=== PATIENT | female | born 1965 | race Caucasian/White ===

== ENCOUNTER 2018-10-16 09:50 | Inpatient (IN) | payer OTHER ==
[2018-10-16 10:36] VITALS: BMI 37.0
[2018-10-16] MEDS ORDERED: MAGNESIUM CITRATE 300 ML BOTTLE PO PRN (14:26)
[2018-10-16] MEDS ORDERED: MENTHOL/PHENOL 1 EACH UD MM PRN (14:26)
[2018-10-16] MEDS ORDERED: LOPERAMIDE HCL 2 MG CAPSULE PO PRN (14:26)
[2018-10-16] MEDS ORDERED: guaiFENesin/D-METHORPHAN HB 10 ML UNIT-DOSE CUPS PO PRN (14:26)
[2018-10-16] MEDS ORDERED: MAG HYDROX/AL HYDROX/SIMETH 30 ML UNIT-DOSE CUP PO PRN (14:26)
--- NOTE | 2018-10-16 14:26 | HP ---
CIWA Score - Admission Criteria [facility]ASAS Guidelines: Admission for Medically Managed Detox: Requires at least one of the followin. CIWA greater than 12 2. Seizures within the past 24 hours 3. Delirium tremens within the past 24 hours 4. Hallucinations within the past 24 hours 5. Acute intervention needed for co occurring medical disorder 6. Acute intervention needed for co occurring psychiatric disorder 7. Severe withdrawal that cannot be handled at a lower level of care (continued vomiting, continued diarrhea, abnormal vital signs) requiring intravenous medication and/or fluids 8. Admission ROS S - HPI Allergies/Adverse Reactions: Allergies Allergy/AdvReac Type Severity Reaction Status Date / Time No Known Allergies Allergy Verified 10/16/18 11:14 Exam Limitations: No Limitations - Ebola screening Have you traveled outside of the country in the last 21 days: No Have you had contact with anyone from an Ebola affected area: No Have you been sick,other than usual withdrawal symptoms: No Do you have a fever: No - Review of Systems Constitutional: Changes in sleep EENT: reports: No Symptoms Reported Respiratory: reports: No Symptoms reported Cardiac: reports: No Symptoms Reported GI: reports: Diarrhea, Poor Fluid Intake : reports: No Symptoms Reported Musculoskeletal: reports: Back Pain, Muscle Pain Integumentary: reports: No Symptoms Reported Neuro: reports: Seizure (drug and alcohol related seizures) Endocrine: reports: No Symptoms Reported Hematology: reports: No Symptoms Reported Psychiatric: reports: Judgement Intact, Mood/Affect Appropiate, Orientated x3, Agitated, Anxious Other Systems: Reviewed and Negative Patient History - Patient Medical History Hx Anemia: No Hx Asthma: Yes Hx Chronic Obstructive Pulmonary Disease (COPD): No Hx Cancer: No Hx Cardiac Disorders: No Hx Congestive Heart Failure: No Hx Hypertension: No Hx Hypercholesterolemia: No Hx Pacemaker: No HX Cerebrovascular Accident: No Hx Seizures: Yes (drug related - last episode was in 03/2018) Hx Dementia: No Hx Diabetes: No Hx Gastrointestinal Disorders: Yes (acid reflux) Hx Genitourinary Disorders: No Hx Sexually Transmitted Disorders: No Hx Renal Disease (ESRD): No Hx Thyroid Disease: No Hx Human Immunodeficiency Virus (HIV): No (NEGATIVE HX) Hx Hepatitis C: Yes (no treatment) Hx Depression: Yes Hx Suicide Attempt: No (10yrs ago ) Hx Bipolar Disorder: No Hx Schizophrenia: No - Patient Surgical History Past Surgical History: No Hx Neurologic Surgery: No Hx Cataract Extraction: No Hx Cardiac Surgery: No Hx Lung Surgery: No Hx Breast Surgery: No Hx Breast Biopsy: No Hx Abdominal Surgery: No Hx Appendectomy: No Hx Cholecystectomy: No Hx Genitourinary Surgery: No Hx Section: No Hx Orthopedic Surgery: No Anesthesia Reaction: No - PPD History Previous Implant?: Yes Documented Results: Positive w/o proof Implanted On Prior [facility] Admission?: No PPD to be Administered?: No - Reproductive History Patient is a Female of Child Bearing Age (11 -55 yrs old): No Patient : No - Smoking Cessation Smoking history: Current every day smoker Have you smoked in the past 12 months: Yes Aproximately how many cigarettes per day: 30 Hx Chewing Tobacco Use: No Initiated information on smoking cessation: Yes 'Breaking Loose' booklet given: 10/16/18 - Substance & Tx. History Hx Alcohol Use: Yes Hx Substance Use: Yes Substance Use Type: Alcohol, Cocaine Hx Substance Use Treatment: Yes ([facility] detox completed 10/16/17) - Substances Abused Cocaine Route: Inhalation Frequency: Daily Amount used: $100 Age of first use: 22 Date of Last Use: 10/10/18 Alcohol-beer Route: Oral Frequency: Daily Amount used: 2-6 pks. Age of first use: 21 Date of Last Use: 10/09/18 Family Disease History - Family Disease History Family Disease History: Diabetes: Father (ALCOHOLISM; DEPRESSION), Other: Father Admission Physical Exam [facility] - Vital Signs Vital Signs: Vital Signs - 24 hr 10/16/18 10:34 Temperature 98.3 F Pulse Rate 69 Respiratory 16 Rate Blood Pressure 141/83 - Physical General Appearance: Yes: Appropriately Dressed, Mild Distress, Obese, Tremorous , Irritable, Anxious HEENTM: Yes: Hearing grossly Normal, Normal Voice Respiratory: Yes: Lungs Clear, Normal Breath Sounds, No Respiratory Distress Neck: Yes: No masses,lesions,Nodules Breast: Yes: Within Normal Limits Cardiology: Yes: Regular Rhythm, Regular Rate, S1, S2 Abdominal: Yes: Normal Bowel Sounds, Non Tender, Soft Genitourinary: Yes: Within Normal Limits Back: Yes: Normal Inspection Musculoskeletal: Yes: Back pain Extremities: Yes: Normal Capillary Refill, Normal Inspection, Non-Tender, Tremors Neurological: Yes: Fully Oriented, Alert, Normal Response Integumentary: Yes: Diaphoresis Lymphatic: Yes: Within Normal Limits - Diagnostic (1) Bipolar II disorder Current Visit: Yes Status: Chronic (2) Cocaine dependence Current Visit: Yes Status: Chronic Qualifiers: Substance use status: uncomplicated Qualified Code(s): F14.20 - Cocaine dependence, uncomplicated (3) Nicotine dependence Current Visit: Yes Status: Chronic Qualifiers: Nicotine product type: cigarettes Substance use status: uncomplicated Qualified Code(s): F17.210 - Nicotine dependence, cigarettes, uncomplicated (4) Depression Current Visit: No Status: Chronic (5) GERD (gastroesophageal reflux disease) Current Visit: Yes Status: Chronic Qualifiers: Esophagitis presence: without esophagitis Qualified Code(s): K21.9 - Gastro -esophageal reflux disease without esophagitis (6) Seizure disorder Current Visit: No Status: Suspected Cleared for Admission [facility] - Detox or Rehab [facility] Level of Care: Medically Managed [facility] Breath Alcohol Content Breath Alcohol Content: 0 Urine Pregancy Test - Result Urine Test Results: Negative- NO Line Present Urine Drug Screen - Results Drug Screen Negative: No Urine Drug Screen Results: BZO-Benzodiazepines, MTD-Methadone Inpatient Rehab Admission - Initial Determination Are CD services needed?: Yes Free of communicable disease: Yes Not in need of hospitalization: Yes - Rehab Admission Criteria Poor recovery environment: Yes Comorbidities: Yes Lacks judgement: Yes
[2018-10-16 17:15] LABS: URINE APPEARANCE CLEAR; URINE BILIRUBIN NEGATIVE (<2.0 mg/dL); URINE COLOR STRAW; URINE GLUCOSE (UA) NEGATIVE (NEGATIVE); URINE KETONE NEGATIVE (NEGATIVE); URINE LEUK ESTERASE TRACE (NEGATIVE); URINE NITRITE NEGATIVE (NEGATIVE); URINE PROTEIN NEGATIVE (NEGATIVE); URINE UROBILINOGEN NEGATIVE mg/dL (0.2-1.0)
[2018-10-16 17:24] LABS: EPI CELLS RARE /HPF (FEW)
[2018-10-16] MEDS: GABAPENTIN 300 MG CAPSULE (FP) PO SCH ×2 (17:28→21:15)
[2018-10-16] MEDS: NICOTINE POLACRILEX 4 MG GUM BC PRN (17:29)
--- NOTE | 2018-10-16 21:11 | PN ---
[facility] Progress Note Note: Psychiatric nurse practitioner note: Call received by RN requesting patient's evening lithium dose. Patient reports taking lithium 150mg TID. Chart and pharmacy claims reviewed. Labs pending. Unable to verify medication through pharmacy claims. [place] WILL NOT be ordered at this time. Will order [place] level for the morning.
[2018-10-16] MEDS: MELATONIN 5 MG TABLETS PO PRN (21:15)
[2018-10-16] MEDS: THIAMINE HCL 100 MG TABLET (FP) PO SCH (21:15)
[2018-10-17] MEDS: GABAPENTIN 300 MG CAPSULE (FP) PO SCH ×3 (06:33→21:23)
[2018-10-17] MEDS ORDERED: METHADONE HCL 10 MG TABLET PO SCH (07:15)
[2018-10-17] MEDS ORDERED: METHADONE HCL 10 MG TABLET ONE (07:48)
[2018-10-17] MEDS: METHADONE 120 MG, METHADONE 10 MG PO SCH (07:49)
[2018-10-17] MEDS ORDERED: METHADONE HCL 40 MG DISPERSABLE TABLET ONE (07:49)
[2018-10-17] MEDS: NICOTINE 21 MG/24 HOURS TOPICAL PATCH TD SCH (09:20)
[2018-10-17] MEDS: VENLAFAXINE HCL 75 MG TABLET PO SCH (09:20)
[2018-10-17] MEDS: PRENATAL VITAMINS W/ FOLIC ACID TABLET (FP) PO SCH (09:21)
[2018-10-17] MEDS: PANTOPRAZOLE 40 MG TABLET (FP) PO SCH (09:21)
[2018-10-17 11:28] LABS: ALBUMIN 3.7 g/dl (3.4-5.0); ALK PHOS 84 U/L (45-117); ANION GAP 4 MMOL/L (8-16); BILIRUBIN,TOTAL 0.3 mg/dL (0.2-1); BLOOD UREA NITROGEN 9 mg/dL (7-18); CALCIUM 8.9 mg/dL (8.5-10.1); CHLORIDE 105 mmol/L (98-107); CO2 32 mmol/L (21-32); CREATININE 0.8 mg/dL (0.55-1.3); GLUCOSE,RANDOM 74 mg/dL (74-106); SGOT/AST 25 U/L (15-37); SGPT/ALT 29 U/L (13-61); SODIUM 140 mmol/L (136-145); TOT PROT 7.5 g/dl (6.4-8.2)
[2018-10-17 11:55] LABS: HEMATOCRIT 37.7 % (32.4-45.2); HEMOGLOBIN 12.3 GM/dL (10.7-15.3); MCH 29.4 pg (25.7-33.7); MCHC 32.6 g/dl (32.0-36.0); MEAN CELL VOLUME 90.1 fl (80-96); MEAN PLT VOLUME 10.3 fl (7.5-11.1); PLATELET COUNT 165 K/MM3 (134-434); RBC 4.19 M/mm3 (3.60-5.2); WHITE BLOOD COUNT 4.3 K/mm3 (4.0-10.0)
--- NOTE | 2018-10-17 12:00 | PN ---
[facility] Progress Note Note: PATIENT ARRIVED TO UNIT YESTERDAY EVENING FOR REHAB SERVICES FOR HEROIN, COCAINE AND ETOH DEPENDENCE. PATIENT CURRENTLY ON MMTP. PMH INCLUDES HEPATITIS C (UNTREATED), ASTHMA, CHRONIC BACK PAIN/DISC HERNIATION, BIPOLAR DISORDER AND SEIZURES. PATIENT C/O BACK SPASMS TODAY BUT OTHERWISE REPORTS "I AM FINE, JUST TIRED". Vital Signs Temperature 98.1 F 10/17/18 07:17 Pulse Rate 62 10/17/18 07:17 Respiratory Rate 18 10/17/18 07:17 Blood Pressure 109/74 10/17/18 07:17 O2 Sat by Pulse Oximetry (%) Laboratory Tests 10/16/18 10/17/18 10/17/18 15:29 05:45 05:45 WBC 4.3 RBC 4.19 Hgb 12.3 Hct 37.7 MCV 90.1 MCH 29.4 MCHC 32.6 RDW 15.0 Plt Count 165 MPV 10.3 Sodium 140 Potassium 4.0 Chloride 105 Carbon Dioxide 32 Anion Gap 4 L BUN 9 Creatinine 0.8 Creat Clearance w eGFR > 60 Random Glucose 74 Calcium 8.9 Total Bilirubin 0.3 AST 25 ALT 29 Alkaline Phosphatase 84 Total Protein 7.5 Albumin 3.7 Urine Color Straw Urine Appearance Clear Urine pH 7.0 Ur Specific [place] 1.009 L Urine Protein Negative Urine Glucose (UA) Negative Urine Ketones Negative Urine Blood Negative Urine Nitrite Negative Urine Bilirubin Negative Urine Urobilinogen Negative Ur Leukocyte Esterase Trace Urine WBC (Auto) <1 Urine RBC (Auto) <1 Ur Epithelial Cells Rare PE: ALERT AND ORIENTED X 3 SKIN WARM AND DRY CAR S1S2 RESP CTA BL GI +OBESE, BS+, NT,ND EXT TRACE PEDAL EDEMA, BLE, +DRY SKIN TO HEELS A/P: MMTP HEROIN/COCAINE/ETOH DEPENDENCE SZD ASTHMA CHRONIC HEP C WILL ADD FLEXERIL FOR BACK SPASMS CONTINUE REHAB SERVICES AND ALL CURRENT ORDERS MAY WEAR SLIPPERS ON UNIT CONTINUE TO MONITOR
[2018-10-17] MEDS: CYCLOBENZAPRINE HCL 10 MG TABLET (FP) PO PRN ×2 (14:01→21:22)
[2018-10-17] MEDS: NICOTINE POLACRILEX 4 MG GUM BC PRN (14:02)
--- NOTE | 2018-10-17 14:46 | HP ---
Psychiatrist Admission - Data Date of interview: 10/17/18 Admission source: [facility] Identifying data: Patient is a 53 year old , mother of three, unemployed , domiciled, and is supported by [facility]. This is patient's first admission to rehab at [facility]. Patient admitted to rehabilitation for alcohol , marijuana, and cocaine dependence. Medical History: Asthma, seizures (drug related-last episode was in 03/2018), Hep C, GERD Psychiatric History: Patient's first psychiatric contact was at 31 years of age after experiencing withdrawal symptoms (anxiety, tremors) from xanax. She reports being prescribed klonopin for approximately seven years. Patient reports h/o twelve psychiatric hospitalizations, most recently two years ago at [facility] after feeling depressed and suicidal. Ms. Cuellar denies h /o psychotic symptoms. Patient is also known to [facility], [facility], and [facility]. Diagnosis of Bipolar II disorder. Outpatient psychiatric care is provided by Dr. Peña at the [facility] clinic in the [place], [place]. States that she is prescribed abilify + Effexor 75mg XL + Gabapentin 300mg TID + Klonopin 1mg BID + [place] 150mg TID (patient unsure of certain dosages, will contact pharmacy). Patient reports h/o three suicide attempts ( overdose and self mutilation). Ms. Cuellar was discharged from community hospital detox on 10/16/18. States she received all of her medications during detox except for klonopin. At present she reports feeling tired but states her mood is stable. Physical/Sexual Abuse/Trauma History: denies. Vital Signs: Vital Signs - 24 hr 10/17/18 10/17/18 10/17/18 00:30 03:30 07:17 Temperature 98.1 F Pulse Rate 62 Respiratory 20 20 18 Rate Blood Pressure 109/74 Allergies/Adverse Reactions: Allergies Allergy/AdvReac Type Severity Reaction Status Date / Time No Known Allergies Allergy Verified 10/16/18 11:14 Date of last physical exam: 10/16/18 Concur with the findings of this exam: Yes - Substance Abuse/Tx History Hx Alcohol Use: Yes (6 pack daily) Hx Substance Use: Yes (Cocaine- $20 daily Marijuana- $10 daily) Substance Use Type: Cocaine Hx [facility] Mental Status Exam - Mental Status Exam Alert and Oriented to: Time, Place, Person Cognitive Function: Good Patient Appearance: Well Groomed Mood: Euthymic Affect: Mood Congruent Patient Behavior: Fatigued, Appropriate, Cooperative Speech Pattern: Appropriate Voice Loudness: Normal Thought Process: Intact, Goal Oriented Thought Disorder: Not Present Hallucinations: Denies Suicidal Ideation: Denies Homicidal Ideation: Denies Insight/Judgement: Poor Sleep: Poorly Appetite: Fair Muscle strength/Tone: Normal Gait/Station: Normal Psychiatric Findings - Problem List ([place] 1, 2,3) (1) Bipolar II disorder Current Visit: Yes Status: Chronic (2) Cocaine dependence Current Visit: Yes Status: Chronic Qualifiers: Substance use status: uncomplicated Qualified Code(s): F14.20 - Cocaine dependence, uncomplicated (3) Methadone maintenance therapy patient Current Visit: Yes Status: Chronic (4) Nicotine dependence Current Visit: Yes Status: Chronic Qualifiers: Nicotine product type: cigarettes Substance use status: uncomplicated Qualified Code(s): F17.210 - Nicotine dependence, cigarettes, uncomplicated - Initial Treatment Plan Initial Treatment Plan: Psychoeducation provided. Rehabilitation in progress. Public Information Director contacted [facility] at and able to speak to pharmacist. As per Pharmacist patient is currently prescribed Effexor 75mg XR + Abilify 20mg daily + Klonopin 1mg BID + Gabapentin 600mg TID + [place] 450mg BID. All medications were picked up on 10/04/18. As per nursing staff in [facility], patient's medication bottle of gabapenin was 300mg TID. Effexor 75 XR + Gabapentin 300mg TID was resumed by CORPORATE FINANCIAL ANALYST. Public Information Director will resume abilify 20mg daily + [place] 450mg BID (renal levels within normal limits.) Current lithium level pending. Next lithium level lab ordered for 10/24/18 @ 0600. Benefits and side effects discussed. Verbal consent given.
[2018-10-17] MEDS: ALBUTEROL SO4 8 GM HFA INHALER IH PRN (15:17)
--- NOTE | 2018-10-17 18:19 | EKG ---
Test Reason : Blood Pressure : / mmHG Vent. Rate : 064 BPM Atrial Rate : 064 BPM P-R Int : 156 ms QRS Dur : 078 ms QT Int : 466 ms P-R-T Axes : 105 114 014 degrees QTc Int : 480 ms SUSPECT ARM LEAD REVERSAL, INTERPRETATION ASSUMES NO REVERSAL NORMAL SINUS RHYTHM LEFT POSTERIOR FASCICULAR BLOCK NONSPECIFIC T WAVE ABNORMALITY ABNORMAL ECG NO PREVIOUS ECGS AVAILABLE Confirmed by MD FRAN, FELICIA ([id number]) on 10/17/2018 6:19:05 PM Referred By: Confirmed By:FELICIA PETERS MD
[2018-10-17] MEDS: THIAMINE HCL 100 MG TABLET (FP) PO SCH (21:20)
[2018-10-17] MEDS: LITHIUM CARBONATE 150 MG CAPSULE PO SCH (21:22)
[2018-10-17] MEDS: MELATONIN 5 MG TABLETS PO PRN (21:23)
[2018-10-17] MEDS: MINERAL OIL/PETROLAT/WATER TOPICAL CREAM 113 GM JAR TP SCH (21:25)
[2018-10-17] MEDS ORDERED: PT OWN MED DRAWER 7, Y5N ONE (21:26)
[2018-10-18] MEDS ORDERED: METHADONE HCL 40 MG DISPERSABLE TABLET ONE (03:17)
[2018-10-18] MEDS ORDERED: METHADONE HCL 10 MG TABLET ONE (03:17)
[2018-10-18] MEDS: METHADONE 120 MG, METHADONE 10 MG PO SCH (06:23)
[2018-10-18] MEDS: GABAPENTIN 300 MG CAPSULE (FP) PO SCH ×3 (06:24→21:15)
[2018-10-18] MEDS: NICOTINE 21 MG/24 HOURS TOPICAL PATCH TD SCH (09:56)
[2018-10-18] MEDS: MINERAL OIL/PETROLAT/WATER TOPICAL CREAM 113 GM JAR TP SCH ×2 (09:57→21:15)
[2018-10-18] MEDS: PRENATAL VITAMINS W/ FOLIC ACID TABLET (FP) PO SCH (09:57)
[2018-10-18] MEDS: PANTOPRAZOLE 40 MG TABLET (FP) PO SCH (09:57)
[2018-10-18] MEDS: ARIPiprazole 10 MG TABLET PO SCH (09:57)
[2018-10-18] MEDS: CYCLOBENZAPRINE HCL 10 MG TABLET (FP) PO PRN ×2 (09:59→21:15)
[2018-10-18] MEDS: VENLAFAXINE HCL 75 MG TABLET PO SCH (10:04)
[2018-10-18] MEDS: LITHIUM CARBONATE 150 MG CAPSULE PO SCH ×2 (10:05→21:15)
--- NOTE | 2018-10-18 11:21 | PN ---
[facility] Progress Note Note: PT REQUESTING CANE. HX SCIATICA. ALSO WANTS REVIEW OF CXR DONE YESTERDAY. Vital Signs - 24 hr 10/18/18 10/18/18 10/18/18 00:30 03:30 07:11 Temperature 97.7 F Pulse Rate 58 L Respiratory 20 20 18 Rate Blood Pressure 104/71 Laboratory Tests 10/16/18 10/17/18 10/17/18 15:29 05:45 05:45 WBC 4.3 RBC 4.19 Hgb 12.3 Hct 37.7 MCV 90.1 MCH 29.4 MCHC 32.6 RDW 15.0 Plt Count 165 MPV 10.3 Sodium 140 Potassium 4.0 Chloride 105 Carbon Dioxide 32 Anion Gap 4 L BUN 9 Creatinine 0.8 Creat Clearance w eGFR > 60 Random Glucose 74 Calcium 8.9 Total Bilirubin 0.3 AST 25 ALT 29 Alkaline Phosphatase 84 Total Protein 7.5 Albumin 3.7 Urine Color Straw Urine Appearance Clear Urine pH 7.0 Ur Specific [place] 1.009 L Urine Protein Negative Urine Glucose (UA) Negative Urine Ketones Negative Urine Blood Negative Urine Nitrite Negative Urine Bilirubin Negative Urine Urobilinogen Negative Ur Leukocyte Esterase Trace Urine WBC (Auto) <1 Urine RBC (Auto) <1 Ur Epithelial Cells Rare [place] RPR Titer 10/17/18 10/17/18 05:45 05:45 WBC RBC Hgb Hct MCV MCH MCHC RDW Plt Count MPV Sodium Potassium Chloride Carbon Dioxide Anion Gap BUN Creatinine Creat Clearance w eGFR Random Glucose Calcium Total Bilirubin AST ALT Alkaline Phosphatase Total Protein Albumin Urine Color Urine Appearance Urine pH Ur Specific [place] Urine Protein Urine Glucose (UA) Urine Ketones Urine Blood Urine Nitrite Urine Bilirubin Urine Urobilinogen Ur Leukocyte Esterase Urine WBC (Auto) Urine RBC (Auto) Ur Epithelial Cells [place] 1.3 H RPR Titer Nonreactive CXR NO ACUTE DISEASE NAD PLAN;CANE DIRECTED
[2018-10-18] MEDS: NICOTINE POLACRILEX 4 MG GUM BC PRN (13:27)
[2018-10-18] MEDS: THIAMINE HCL 100 MG TABLET (FP) PO SCH (21:15)
[2018-10-18] MEDS: MELATONIN 5 MG TABLETS PO PRN (21:16)
[2018-10-19] MEDS ORDERED: METHADONE HCL 10 MG TABLET ONE (03:19)
[2018-10-19] MEDS ORDERED: METHADONE HCL 40 MG DISPERSABLE TABLET ONE (03:20)
[2018-10-19] MEDS: METHADONE 120 MG, METHADONE 10 MG PO SCH (06:13)
[2018-10-19] MEDS: GABAPENTIN 300 MG CAPSULE (FP) PO SCH ×3 (06:14→21:10)
[2018-10-19] MEDS ORDERED: PT OWN MED DRAWER 7, Y5N ONE (08:46)
[2018-10-19] MEDS: NICOTINE POLACRILEX 4 MG GUM BC PRN (08:57)
[2018-10-19] MEDS: PANTOPRAZOLE 40 MG TABLET (FP) PO SCH (09:47)
[2018-10-19] MEDS: NICOTINE 21 MG/24 HOURS TOPICAL PATCH TD SCH (09:47)
[2018-10-19] MEDS: MINERAL OIL/PETROLAT/WATER TOPICAL CREAM 113 GM JAR TP SCH ×2 (09:47→21:11)
[2018-10-19] MEDS: LITHIUM CARBONATE 150 MG CAPSULE PO SCH (09:47)
[2018-10-19] MEDS: ARIPiprazole 10 MG TABLET PO SCH (09:48)
[2018-10-19] MEDS: PRENATAL VITAMINS W/ FOLIC ACID TABLET (FP) PO SCH (09:48)
[2018-10-19] MEDS: VENLAFAXINE HCL 75 MG TABLET PO SCH (10:09)
[2018-10-19] MEDS: CYCLOBENZAPRINE HCL 10 MG TABLET (FP) PO PRN ×2 (10:10→21:10)
[2018-10-19] MEDS: IBUPROFEN 400 MG TABLET (FP) PO PRN (10:10)
--- NOTE | 2018-10-19 10:12 | PN ---
[facility] Progress Note Note: PATIENT C/O CHRONIC LBP. FLEXERIL IN PROGRESS NEEDED. PATIENT ENCOURAGED TO REQUEST MEDICATION WHEN PAIN OCCURS. WILL ADD LIDOCAINE PATCH TO REGIMEN PATIENT TREATED WITH PATCHES IN PAST WITH SOME RELIEF. PATIENT HAS H/O HERNIATED DISC AND CONDITION CHRONIC. WILL CONTINUE TO MONITOR CLINICALLY. Vital Signs Temperature 97.7 F 10/19/18 06:42 Pulse Rate 59 L 10/19/18 06:42 Respiratory Rate 18 10/19/18 06:42 Blood Pressure 113/76 10/19/18 06:42 O2 Sat by Pulse Oximetry (%)
[2018-10-19] MEDS: LIDOCAINE 5% TOPICAL PATCH TP SCH (10:47)
--- NOTE | 2018-10-19 13:55 | PN ---
Psychiatric Progress Note Vital Signs: Vital Signs Period Temp Pulse Resp BP Sys/Marin Pulse Ox Last 24 Hr 97.7 F 59 18-20 113/76 Date of Session: 10/19/18 Chief Complaint:: "lithium level 1.3" HPI: Patient admitted to 3E rehabilitation for alcohol, marijuana, and cocaine dependence co-morbid Bipolar disorder. ROS: Asthma, seizures (drug related-last episode was in 03/2018), Hep C, GERD Current Medications: Active Medications Generic Name Dose Route Start Last Admin Trade Name Freq PRN Reason Stop Dose Admin Acetaminophen 650 mg 10/16/18 14:26 Tylenol - PO Q4H PRN FEVER Al Hydroxide/Mg Hydroxide 30 ml 10/16/18 14:26 Mylanta Oral Suspension - PO Q6H PRN DYSPEPSIA Albuterol Sulfate 2 puff 10/16/18 14:28 10/17/18 15:17 Ventolin Hfa Inhaler - IH 2 puff Q4H PRN Administration ASTHMA Aripiprazole 20 mg 10/18/18 10:00 10/19/18 09:48 Abilify PO 20 mg DAILY RADHAMES Administration Cyclobenzaprine HCl 10 mg 10/17/18 09:56 10/19/18 10:10 Flexeril - PO 10 mg TID PRN Administration MUSCLE SPASMS Eucalyptus/Menthol/Phenol/Sorbitol 1 each 10/16/18 14:26 Cepastat Lozenge - MM Q4H PRN SORE THROAT Gabapentin 300 mg 10/16/18 14:30 10/19/18 06:14 Neurontin - PO 300 mg TID RADHAMES Administration Guaifenesin 10 ml 10/16/18 14:26 Robitussin Dm - PO Q6H PRN COUGH Hydroxyzine Pamoate 50 mg 10/16/18 14:26 Vistaril - PO Q4H PRN AGITATION Ibuprofen 400 mg 10/16/18 14:26 10/19/18 10:10 Motrin - PO 400 mg Q6H PRN Administration Pain level 4-6 Lidocaine 1 patch 10/19/18 10:15 10/19/18 10:47 Lidoderm Patch - TP 1 patch DAILY RADHAMES Administration [place] Carbonate 450 mg 10/17/18 22:00 10/19/18 09:47 Eskalith - PO 450 mg BID RADHAMES Administration Loperamide HCl 4 mg 10/16/18 14:26 Imodium - PO Q6H PRN DIARRHEA Magnesium Citrate 300 ml 10/16/18 14:26 Citroma - PO Q48H PRN CONSTIPATION Magnesium Hydroxide 30 ml 10/16/18 14:26 Milk Of Magnesia - PO DAILY PRN CONSTIPATION Melatonin 5 mg 10/16/18 22:00 10/18/18 21:16 Melatonin PO 5 mg HS PRN Administration INSOMNIA Methadone HCl 120 mg/ 130 mg 10/17/18 07:45 10/19/18 06:13 Methadone HCl 10 mg PO 130 mg DAILY@0600 RADHAMES Administration Miscellaneous 1 each 10/19/18 22:00 Lidoderm Patch Removal MC DAILY@2200 [facility] Multi-Ingredient Lotion 1 applic 10/17/18 22:00 10/19/18 09:47 Eucerin (Small Jar) - TP 1 applic BID RADHAMES Administration Nicotine 21 mg 10/17/18 10:00 10/19/18 09:47 Nicoderm Patch - TD 21 mg DAILY RADHAMES Administration Nicotine Polacrilex 4 mg 10/16/18 14:26 10/19/18 08:57 Nicorette Gum - BC 4 mg Q2H PRN Administration NICOTINE REPLACEMENT RX Pantoprazole Sodium 40 mg 10/17/18 10:00 10/19/18 09:47 Protonix - PO 40 mg DAILY RADHAMES Administration Multivit/Folic Acid/Iron 1 tab 10/17/18 10:00 10/19/18 09:48 Vitamins (Sjr) - PO 1 tab DAILY RADHAMES Administration Pseudoephedrine/Triprolidine 1 combo 10/16/18 14:26 Actifed - PO TID PRN NASAL CONGESTION Thiamine HCl 100 mg 10/16/18 22:00 10/18/18 21:15 Vitamin B1 - PO 100 mg HS RADHAMES Administration Venlafaxine HCl 75 mg 10/17/18 10:00 10/19/18 10:09 Effexor - PO 75 mg DAILY RADHAMES Administration Medication(s) Change(s): Yes. Will hold lithium level Current Side Effect: No Lab tests ordered: No Lab tests reviewed: Yes Provider note:: Patient's lithium level was 1.3 on 10/17/18. Chart reviewed. Patient was resumed on lithium 450mg BID on the evening of 10/17/18 after underwriter solicitation director was able to verify dose with [facility]. Patient did not receive her evening dose of lithium on 10/16/18. Patient calm and cooperative. Alert and oriented X3. No signs of lithium toxicity noted. [place] medication to be held due to mildly elevated lithium level of 1.3 on 10/17/18. Will order lithium level for the morning of 10/20/18 and discontinue lithium level ordered for . Patient educated on the signs of symptoms of lithium toxicity. Patient agreeable with current plan. Will consult with unit psychiatrist Dr. vargas tomorrow morning. Total face to face time:: 25 Mental Status Exam - Mental Status Exam Alert and Oriented to: Time, Place, Person Cognitive Function: Good Patient Appearance: Well Groomed Mood: Euthymic Affect: Mood Congruent Patient Behavior: Fatigued, Cooperative Speech Pattern: Clear Voice Loudness: Moderately Soft/Quiet Thought Process: Intact, Goal Oriented Thought Disorder: Not Present Hallucinations: Denies Suicidal Ideation: Denies Homicidal Ideation: Denies Insight/Judgement: Poor Sleep: Fair Appetite: Fair Muscle strength/Tone: Normal Gait/Station: Other (Patient ambulates with assistance with a cane.) Psychiatric Treatment Plan - Problem List (1) Bipolar II disorder Current Visit: Yes (2) Cocaine dependence Current Visit: Yes Qualifiers: Substance use status: uncomplicated Qualified Code(s): F14.20 - Cocaine dependence, uncomplicated (3) Methadone maintenance therapy patient Current Visit: Yes (4) Nicotine dependence Current Visit: Yes Qualifiers: Nicotine product type: cigarettes Substance use status: uncomplicated Qualified Code(s): F17.210 - Nicotine dependence, cigarettes, uncomplicated
[2018-10-19] MEDS: MELATONIN 5 MG TABLETS PO PRN (21:10)
[2018-10-19] MEDS: THIAMINE HCL 100 MG TABLET (FP) PO SCH (21:10)
[2018-10-19] MEDS: MAGNESIUM HYDROX 2400MG/30ML ORAL SUSPENSION 30 ML CUP PO PRN (21:11)
[2018-10-19] MEDS: LIDOCAINE PATCH REMOVAL MC SCH (21:11)
[2018-10-20] MEDS ORDERED: METHADONE HCL 40 MG DISPERSABLE TABLET ONE (05:43)
[2018-10-20] MEDS ORDERED: METHADONE HCL 10 MG TABLET ONE (05:43)
[2018-10-20] MEDS: METHADONE 120 MG, METHADONE 10 MG PO SCH (06:15)
[2018-10-20] MEDS: GABAPENTIN 300 MG CAPSULE (FP) PO SCH ×3 (06:15→21:05)
[2018-10-20] MEDS ORDERED: PT OWN MED DRAWER 7, Y5N ONE ×2 (08:49→21:44)
[2018-10-20] MEDS: VENLAFAXINE HCL 75 MG TABLET PO SCH (09:52)
[2018-10-20] MEDS: ARIPiprazole 10 MG TABLET PO SCH (09:52)
[2018-10-20] MEDS: PRENATAL VITAMINS W/ FOLIC ACID TABLET (FP) PO SCH (09:52)
[2018-10-20] MEDS: LIDOCAINE 5% TOPICAL PATCH TP SCH (09:52)
[2018-10-20] MEDS: PANTOPRAZOLE 40 MG TABLET (FP) PO SCH (09:52)
[2018-10-20] MEDS: CYCLOBENZAPRINE HCL 10 MG TABLET (FP) PO PRN ×2 (09:53→21:05)
[2018-10-20] MEDS: MINERAL OIL/PETROLAT/WATER TOPICAL CREAM 113 GM JAR TP SCH ×2 (09:54→21:05)
[2018-10-20] MEDS: NICOTINE 21 MG/24 HOURS TOPICAL PATCH TD SCH (09:54)
[2018-10-20] MEDS: NICOTINE POLACRILEX 4 MG GUM BC PRN ×2 (09:57→12:54)
[2018-10-20] MEDS: ALBUTEROL SO4 8 GM HFA INHALER IH PRN (12:54)
[2018-10-20] MEDS: MAGNESIUM HYDROX 2400MG/30ML ORAL SUSPENSION 30 ML CUP PO PRN (14:22)
[2018-10-20] MEDS: THIAMINE HCL 100 MG TABLET (FP) PO SCH (21:05)
[2018-10-20] MEDS: LIDOCAINE PATCH REMOVAL MC SCH (21:05)
[2018-10-21] MEDS ORDERED: METHADONE HCL 40 MG DISPERSABLE TABLET ONE (05:43)
[2018-10-21] MEDS ORDERED: METHADONE HCL 10 MG TABLET ONE (05:43)
[2018-10-21] MEDS: METHADONE 120 MG, METHADONE 10 MG PO SCH (06:33)
[2018-10-21] MEDS: GABAPENTIN 300 MG CAPSULE (FP) PO SCH ×3 (06:33→21:18)
--- NOTE | 2018-10-21 08:36 | PN ---
[facility] Progress Note Note: Psychiatric nurse practitioner note: [place] level on 10/20/18 was 0.6 . [place] was held after results were 1.3 on . Patient informed of her results and made aware that lithium 450mg BID will be resumed. Patient told writer editor that when she was at [facility] she was given lithium 450mg TID as oppose to what she is prescribed by her outpatient psychiatrist of 450mg BID. Verbal consent given. Will resume lithium 450mg BID.
[2018-10-21] MEDS ORDERED: PT OWN MED DRAWER 7, Y5N ONE ×2 (08:42→21:12)
[2018-10-21] MEDS: NICOTINE POLACRILEX 4 MG GUM BC PRN (09:00)
[2018-10-21] MEDS: NICOTINE 21 MG/24 HOURS TOPICAL PATCH TD SCH (09:35)
[2018-10-21] MEDS: PRENATAL VITAMINS W/ FOLIC ACID TABLET (FP) PO SCH (09:35)
[2018-10-21] MEDS: LIDOCAINE 5% TOPICAL PATCH TP SCH (09:35)
[2018-10-21] MEDS: ARIPiprazole 10 MG TABLET PO SCH (09:36)
[2018-10-21] MEDS: PANTOPRAZOLE 40 MG TABLET (FP) PO SCH (09:36)
[2018-10-21] MEDS: VENLAFAXINE HCL 75 MG TABLET PO SCH (09:36)
[2018-10-21] MEDS: MINERAL OIL/PETROLAT/WATER TOPICAL CREAM 113 GM JAR TP SCH ×2 (09:37→21:17)
[2018-10-21] MEDS: CYCLOBENZAPRINE HCL 10 MG TABLET (FP) PO PRN ×2 (09:38→21:17)
[2018-10-21] MEDS: LITHIUM CARBONATE 150 MG CAPSULE PO SCH ×2 (10:32→21:17)
[2018-10-21] MEDS: LIDOCAINE PATCH REMOVAL MC SCH (21:17)
[2018-10-21] MEDS: THIAMINE HCL 100 MG TABLET (FP) PO SCH (21:17)
[2018-10-21] MEDS: MELATONIN 5 MG TABLETS PO PRN (21:18)
[2018-10-22] MEDS ORDERED: METHADONE HCL 10 MG TABLET ONE (06:00)
[2018-10-22] MEDS ORDERED: METHADONE HCL 40 MG DISPERSABLE TABLET ONE (06:00)
[2018-10-22] MEDS: METHADONE 120 MG, METHADONE 10 MG PO SCH (06:40)
[2018-10-22] MEDS: GABAPENTIN 300 MG CAPSULE (FP) PO SCH ×3 (06:41→21:25)
[2018-10-22] MEDS: IBUPROFEN 400 MG TABLET (FP) PO PRN ×2 (06:43→21:28)
[2018-10-22] MEDS: CYCLOBENZAPRINE HCL 10 MG TABLET (FP) PO PRN ×2 (06:43→21:25)
[2018-10-22] MEDS: NICOTINE POLACRILEX 4 MG GUM BC PRN ×3 (06:53→17:16)
[2018-10-22] MEDS ORDERED: PT OWN MED DRAWER 7, Y5N ONE ×3 (08:44→21:26)
[2018-10-22] MEDS: NICOTINE 21 MG/24 HOURS TOPICAL PATCH TD SCH (09:50)
[2018-10-22] MEDS: ARIPiprazole 10 MG TABLET PO SCH (09:50)
[2018-10-22] MEDS: PANTOPRAZOLE 40 MG TABLET (FP) PO SCH (09:50)
[2018-10-22] MEDS: LITHIUM CARBONATE 150 MG CAPSULE PO SCH ×2 (09:51→21:27)
[2018-10-22] MEDS: VENLAFAXINE HCL 75 MG TABLET PO SCH (09:51)
[2018-10-22] MEDS: MINERAL OIL/PETROLAT/WATER TOPICAL CREAM 113 GM JAR TP SCH ×2 (09:51→21:27)
[2018-10-22] MEDS: PRENATAL VITAMINS W/ FOLIC ACID TABLET (FP) PO SCH (09:51)
[2018-10-22] MEDS: hydrOXYzine PAMOATE 50 MG CAPSULE (FP) PO PRN ×2 (09:52→21:27)
[2018-10-22] MEDS: LIDOCAINE 5% TOPICAL PATCH TP SCH (09:52)
[2018-10-22] MEDS: ALBUTEROL SO4 8 GM HFA INHALER IH PRN (10:23)
[2018-10-22] MEDS: THIAMINE HCL 100 MG TABLET (FP) PO SCH (21:24)
[2018-10-22] MEDS: LIDOCAINE PATCH REMOVAL MC SCH (21:27)
[2018-10-23] MEDS ORDERED: METHADONE HCL 40 MG DISPERSABLE TABLET ONE (05:11)
[2018-10-23] MEDS ORDERED: METHADONE HCL 10 MG TABLET ONE (05:11)
[2018-10-23] MEDS: METHADONE 120 MG, METHADONE 10 MG PO SCH (06:12)
[2018-10-23] MEDS: GABAPENTIN 300 MG CAPSULE (FP) PO SCH ×3 (06:12→21:07)
[2018-10-23] MEDS: ARIPiprazole 10 MG TABLET PO SCH (09:42)
[2018-10-23] MEDS: PRENATAL VITAMINS W/ FOLIC ACID TABLET (FP) PO SCH (09:42)
[2018-10-23] MEDS: hydrOXYzine PAMOATE 50 MG CAPSULE (FP) PO PRN ×2 (09:42→21:07)
[2018-10-23] MEDS: PANTOPRAZOLE 40 MG TABLET (FP) PO SCH (09:42)
[2018-10-23] MEDS: LITHIUM CARBONATE 150 MG CAPSULE PO SCH ×2 (09:42→21:06)
[2018-10-23] MEDS: IBUPROFEN 400 MG TABLET (FP) PO PRN (09:42)
[2018-10-23] MEDS: VENLAFAXINE HCL 75 MG TABLET PO SCH (09:43)
[2018-10-23] MEDS: NICOTINE 21 MG/24 HOURS TOPICAL PATCH TD SCH (09:44)
[2018-10-23] MEDS: LIDOCAINE 5% TOPICAL PATCH TP SCH (09:44)
[2018-10-23] MEDS: MINERAL OIL/PETROLAT/WATER TOPICAL CREAM 113 GM JAR TP SCH ×2 (09:45→21:07)
[2018-10-23] MEDS: NICOTINE POLACRILEX 4 MG GUM BC PRN ×3 (09:45→21:09)
[2018-10-23] MEDS: ALBUTEROL SO4 8 GM HFA INHALER IH PRN (10:14)
[2018-10-23] MEDS: CYCLOBENZAPRINE HCL 10 MG TABLET (FP) PO PRN ×2 (13:38→21:07)
[2018-10-23] MEDS: COLLOIDAL OATMEAL 1 BAR EACH TP PRN (13:39)
[2018-10-23] MEDS: THIAMINE HCL 100 MG TABLET (FP) PO SCH (21:07)
[2018-10-23] MEDS: LIDOCAINE PATCH REMOVAL MC SCH (21:07)
[2018-10-24] MEDS ORDERED: METHADONE HCL 40 MG DISPERSABLE TABLET ONE (03:17)
[2018-10-24] MEDS ORDERED: METHADONE HCL 10 MG TABLET ONE (03:17)
[2018-10-24] MEDS: METHADONE 120 MG, METHADONE 10 MG PO SCH (06:21)
[2018-10-24] MEDS: GABAPENTIN 300 MG CAPSULE (FP) PO SCH ×3 (06:22→21:13)
[2018-10-24] MEDS: CYCLOBENZAPRINE HCL 10 MG TABLET (FP) PO PRN ×2 (06:23→21:12)
[2018-10-24] MEDS: ALBUTEROL SO4 8 GM HFA INHALER IH PRN ×2 (06:24→09:56)
[2018-10-24] MEDS ORDERED: PT OWN MED DRAWER 7, Y5N ONE ×2 (08:34→21:30)
[2018-10-24] MEDS: ARIPiprazole 10 MG TABLET PO SCH (09:37)
[2018-10-24] MEDS: LIDOCAINE 5% TOPICAL PATCH TP SCH (09:37)
[2018-10-24] MEDS: LITHIUM CARBONATE 150 MG CAPSULE PO SCH ×2 (09:38→21:12)
[2018-10-24] MEDS: VENLAFAXINE HCL 75 MG TABLET PO SCH (09:38)
[2018-10-24] MEDS: PANTOPRAZOLE 40 MG TABLET (FP) PO SCH (09:39)
[2018-10-24] MEDS: NICOTINE 21 MG/24 HOURS TOPICAL PATCH TD SCH (09:39)
[2018-10-24] MEDS: PRENATAL VITAMINS W/ FOLIC ACID TABLET (FP) PO SCH (09:39)
[2018-10-24] MEDS: MINERAL OIL/PETROLAT/WATER TOPICAL CREAM 113 GM JAR TP SCH ×2 (09:39→21:13)
[2018-10-24] MEDS: hydrOXYzine PAMOATE 50 MG CAPSULE (FP) PO PRN ×2 (09:39→21:13)
[2018-10-24] MEDS: NICOTINE POLACRILEX 4 MG GUM BC PRN ×2 (09:40→13:06)
[2018-10-24] MEDS: MAGNESIUM HYDROX 2400MG/30ML ORAL SUSPENSION 30 ML CUP PO PRN (19:11)
[2018-10-24] MEDS: LIDOCAINE PATCH REMOVAL MC SCH (21:13)
[2018-10-24] MEDS: THIAMINE HCL 100 MG TABLET (FP) PO SCH (21:13)
[2018-10-25] MEDS ORDERED: METHADONE HCL 40 MG DISPERSABLE TABLET ONE (03:16)
[2018-10-25] MEDS ORDERED: METHADONE HCL 10 MG TABLET ONE (03:16)
[2018-10-25] MEDS: METHADONE 120 MG, METHADONE 10 MG PO SCH (06:31)
[2018-10-25] MEDS: GABAPENTIN 300 MG CAPSULE (FP) PO SCH ×3 (06:33→21:25)
[2018-10-25] MEDS: CYCLOBENZAPRINE HCL 10 MG TABLET (FP) PO PRN ×2 (06:33→21:25)
[2018-10-25] MEDS: ALBUTEROL SO4 8 GM HFA INHALER IH PRN (06:33)
[2018-10-25] MEDS ORDERED: PT OWN MED DRAWER 7, Y5N ONE ×3 (08:09→15:57)
[2018-10-25] MEDS: ARIPiprazole 10 MG TABLET PO SCH (09:26)
[2018-10-25] MEDS: VENLAFAXINE HCL 75 MG TABLET PO SCH (09:26)
[2018-10-25] MEDS: LITHIUM CARBONATE 150 MG CAPSULE PO SCH ×2 (09:26→21:25)
[2018-10-25] MEDS: PRENATAL VITAMINS W/ FOLIC ACID TABLET (FP) PO SCH (09:27)
[2018-10-25] MEDS: MINERAL OIL/PETROLAT/WATER TOPICAL CREAM 113 GM JAR TP SCH ×2 (09:27→21:25)
[2018-10-25] MEDS: PANTOPRAZOLE 40 MG TABLET (FP) PO SCH (09:27)
[2018-10-25] MEDS: LIDOCAINE 5% TOPICAL PATCH TP SCH (09:27)
[2018-10-25] MEDS: NICOTINE 21 MG/24 HOURS TOPICAL PATCH TD SCH (09:28)
[2018-10-25] MEDS: hydrOXYzine PAMOATE 50 MG CAPSULE (FP) PO PRN ×2 (09:28→21:27)
[2018-10-25] MEDS: NICOTINE POLACRILEX 4 MG GUM BC PRN (10:37)
--- NOTE | 2018-10-25 11:51 | PN ---
[facility] Progress Note Note: c/o itchiness to both lower legs. Vital Signs 10/25/18 06:35 Temperature 97.7 F Pulse Rate 73 Respiratory 18 Rate Blood Pressure 134/79 Redness and escoraited to skin on both anterior patel plan;hydrocortisone cream1% apply as directed
[2018-10-25] MEDS: HYDROCORTISONE 1% TOPICAL CREAM 30 GM TUBE TP SCH ×2 (12:55→21:25)
[2018-10-25] MEDS: THIAMINE HCL 100 MG TABLET (FP) PO SCH (21:25)
[2018-10-25] MEDS: MELATONIN 5 MG TABLETS PO PRN (21:25)
[2018-10-25] MEDS: LIDOCAINE PATCH REMOVAL MC SCH (21:26)
[2018-10-25] MEDS: IBUPROFEN 400 MG TABLET (FP) PO PRN (21:27)
[2018-10-26] MEDS ORDERED: METHADONE HCL 10 MG TABLET ONE (03:14)
[2018-10-26] MEDS ORDERED: METHADONE HCL 40 MG DISPERSABLE TABLET ONE (03:14)
[2018-10-26] MEDS: CYCLOBENZAPRINE HCL 10 MG TABLET (FP) PO PRN (06:36)
[2018-10-26] MEDS: GABAPENTIN 300 MG CAPSULE (FP) PO SCH ×3 (06:36→21:30)
[2018-10-26] MEDS: METHADONE 120 MG, METHADONE 10 MG PO SCH (06:36)
[2018-10-26] MEDS ORDERED: PT OWN MED DRAWER 7, Y5N ONE (08:52)
[2018-10-26] MEDS: ALBUTEROL SO4 8 GM HFA INHALER IH PRN (09:31)
[2018-10-26] MEDS: PANTOPRAZOLE 40 MG TABLET (FP) PO SCH (09:33)
[2018-10-26] MEDS: PRENATAL VITAMINS W/ FOLIC ACID TABLET (FP) PO SCH (09:33)
[2018-10-26] MEDS: ARIPiprazole 10 MG TABLET PO SCH (09:33)
[2018-10-26] MEDS: VENLAFAXINE HCL 75 MG TABLET PO SCH (09:33)
[2018-10-26] MEDS: NICOTINE 21 MG/24 HOURS TOPICAL PATCH TD SCH (09:34)
[2018-10-26] MEDS: LIDOCAINE 5% TOPICAL PATCH TP SCH (09:34)
[2018-10-26] MEDS: hydrOXYzine PAMOATE 50 MG CAPSULE (FP) PO PRN ×2 (09:34→21:30)
[2018-10-26] MEDS: LITHIUM CARBONATE 150 MG CAPSULE PO SCH ×2 (09:34→21:30)
[2018-10-26] MEDS: HYDROCORTISONE 1% TOPICAL CREAM 30 GM TUBE TP SCH ×2 (09:35→21:31)
[2018-10-26] MEDS: MINERAL OIL/PETROLAT/WATER TOPICAL CREAM 113 GM JAR TP SCH ×2 (09:37→21:31)
[2018-10-26] MEDS: NICOTINE POLACRILEX 4 MG GUM BC PRN ×2 (09:37→17:58)
[2018-10-26] MEDS: CYCLOBENZAPRINE HCL 10 MG TABLET (FP) PO SCH ×2 (13:48→21:30)
[2018-10-26] MEDS: THIAMINE HCL 100 MG TABLET (FP) PO SCH (21:30)
[2018-10-26] MEDS: LIDOCAINE PATCH REMOVAL MC SCH (21:31)
[2018-10-27] MEDS ORDERED: METHADONE HCL 10 MG TABLET ONE (05:51)
[2018-10-27] MEDS ORDERED: METHADONE HCL 40 MG DISPERSABLE TABLET ONE (05:52)
[2018-10-27] MEDS: CYCLOBENZAPRINE HCL 10 MG TABLET (FP) PO SCH ×3 (06:35→21:10)
[2018-10-27] MEDS: METHADONE 120 MG, METHADONE 10 MG PO SCH (06:35)
[2018-10-27] MEDS: GABAPENTIN 300 MG CAPSULE (FP) PO SCH ×3 (06:35→21:10)
[2018-10-27] MEDS ORDERED: PT OWN MED DRAWER 7, Y5N ONE (08:24)
[2018-10-27] MEDS: VENLAFAXINE HCL 75 MG TABLET PO SCH (09:41)
[2018-10-27] MEDS: NICOTINE 21 MG/24 HOURS TOPICAL PATCH TD SCH (09:41)
[2018-10-27] MEDS: PANTOPRAZOLE 40 MG TABLET (FP) PO SCH (09:41)
[2018-10-27] MEDS: ARIPiprazole 10 MG TABLET PO SCH (09:41)
[2018-10-27] MEDS: LITHIUM CARBONATE 150 MG CAPSULE PO SCH ×2 (09:41→21:09)
[2018-10-27] MEDS: HYDROCORTISONE 1% TOPICAL CREAM 30 GM TUBE TP SCH ×2 (09:42→21:11)
[2018-10-27] MEDS: MINERAL OIL/PETROLAT/WATER TOPICAL CREAM 113 GM JAR TP SCH ×2 (09:42→21:11)
[2018-10-27] MEDS: PRENATAL VITAMINS W/ FOLIC ACID TABLET (FP) PO SCH (09:42)
[2018-10-27] MEDS: LIDOCAINE 5% TOPICAL PATCH TP SCH (09:42)
--- NOTE | 2018-10-27 11:43 | PN ---
[facility] Progress Note Note: PATIENT SCHEDULED FOR D/C 10/30/18. PATIENT TO CONTINUE WITH OUTPATIENT SERVICES AT [facility]. PATIENT HAS MEDICATIONS IN PROPERTY FILLED 10/04/18 BY [facility]. PRESCRIPTIONS AND DATE FILLED VERIFIED WITH PHARMACY THE SAME. PATIENT ENCOURAGED TO FOLLOW UP WITH PCP WITHIN ONE WEEK OF DISCHARGE AND TO CONTINUE WITH OUTPATIENT ADDICTION SERVICES AT [facility]. PATIENT SENT NARCAN KIT TO PREFERRED PHARMACY. PATIENT IS MEDICALLY STABLE AT THIS TIME AND CLEARED FOR D/ C ON TUESDAY SCHEDULED. PATIENT DENIES SI/HI AND STATES ALL GOALS MET BY REHAB PROGRAM. Vital Signs Temperature 97.7 F 10/27/18 06:53 Pulse Rate 67 10/27/18 06:53 Respiratory Rate 18 10/27/18 06:53 Blood Pressure 134/85 10/27/18 06:53 O2 Sat by Pulse Oximetry (%)
[2018-10-27] MEDS: hydrOXYzine PAMOATE 50 MG CAPSULE (FP) PO PRN (21:09)
[2018-10-27] MEDS: THIAMINE HCL 100 MG TABLET (FP) PO SCH (21:10)
[2018-10-27] MEDS: MELATONIN 5 MG TABLETS PO PRN (21:10)
[2018-10-27] MEDS: LIDOCAINE PATCH REMOVAL MC SCH (21:11)
[2018-10-28] MEDS ORDERED: METHADONE HCL 10 MG TABLET ONE (03:05)
[2018-10-28] MEDS ORDERED: METHADONE HCL 40 MG DISPERSABLE TABLET ONE (03:06)
[2018-10-28] MEDS ORDERED: PT OWN MED DRAWER 7, Y5N ONE ×4 (03:07→21:41)
[2018-10-28] MEDS: METHADONE 120 MG, METHADONE 10 MG PO SCH (06:26)
[2018-10-28] MEDS: CYCLOBENZAPRINE HCL 10 MG TABLET (FP) PO SCH ×3 (06:27→21:01)
[2018-10-28] MEDS: GABAPENTIN 300 MG CAPSULE (FP) PO SCH ×3 (06:27→21:01)
[2018-10-28] MEDS: ARIPiprazole 10 MG TABLET PO SCH (09:37)
[2018-10-28] MEDS: MINERAL OIL/PETROLAT/WATER TOPICAL CREAM 113 GM JAR TP SCH ×2 (09:38→21:02)
[2018-10-28] MEDS: HYDROCORTISONE 1% TOPICAL CREAM 30 GM TUBE TP SCH ×2 (09:38→21:02)
[2018-10-28] MEDS: LITHIUM CARBONATE 150 MG CAPSULE PO SCH ×2 (09:38→21:41)
[2018-10-28] MEDS: VENLAFAXINE HCL 75 MG TABLET PO SCH (09:38)
[2018-10-28] MEDS: NICOTINE 21 MG/24 HOURS TOPICAL PATCH TD SCH (09:39)
[2018-10-28] MEDS: PRENATAL VITAMINS W/ FOLIC ACID TABLET (FP) PO SCH (09:39)
[2018-10-28] MEDS: LIDOCAINE 5% TOPICAL PATCH TP SCH (09:39)
[2018-10-28] MEDS: PANTOPRAZOLE 40 MG TABLET (FP) PO SCH (09:39)
[2018-10-28] MEDS: hydrOXYzine PAMOATE 50 MG CAPSULE (FP) PO PRN ×2 (09:40→21:04)
[2018-10-28] MEDS: NICOTINE POLACRILEX 4 MG GUM BC PRN ×2 (09:41→21:06)
[2018-10-28] MEDS: COLLOIDAL OATMEAL 1 BAR EACH TP PRN (17:31)
[2018-10-28] MEDS: THIAMINE HCL 100 MG TABLET (FP) PO SCH (21:01)
[2018-10-28] MEDS: LIDOCAINE PATCH REMOVAL MC SCH (21:03)
[2018-10-28] MEDS: ALBUTEROL SO4 8 GM HFA INHALER IH PRN (21:41)
[2018-10-29] MEDS: hydrOXYzine PAMOATE 50 MG CAPSULE (FP) PO PRN (00:28)
[2018-10-29] MEDS ORDERED: METHADONE HCL 40 MG DISPERSABLE TABLET ONE (03:20)
[2018-10-29] MEDS ORDERED: METHADONE HCL 10 MG TABLET ONE (03:20)
[2018-10-29] MEDS: METHADONE 120 MG, METHADONE 10 MG PO SCH (06:31)
[2018-10-29] MEDS: CYCLOBENZAPRINE HCL 10 MG TABLET (FP) PO SCH ×3 (06:32→21:08)
[2018-10-29] MEDS: GABAPENTIN 300 MG CAPSULE (FP) PO SCH ×3 (06:32→21:08)
[2018-10-29] MEDS: P-EPHED 60MG/TRIPROLIDI 2.5MG TABLET PO PRN (07:42)
[2018-10-29] MEDS: ACETAMINOPHEN 325 MG TABLET (FP) PO PRN ×2 (07:42→15:33)
[2018-10-29] MEDS ORDERED: PT OWN MED DRAWER 7, Y5N ONE ×2 (08:36→21:38)
[2018-10-29] MEDS: LITHIUM CARBONATE 150 MG CAPSULE PO SCH ×2 (09:57→21:07)
[2018-10-29] MEDS: PRENATAL VITAMINS W/ FOLIC ACID TABLET (FP) PO SCH (09:58)
[2018-10-29] MEDS: PANTOPRAZOLE 40 MG TABLET (FP) PO SCH (09:58)
[2018-10-29] MEDS: ARIPiprazole 10 MG TABLET PO SCH (09:58)
[2018-10-29] MEDS: VENLAFAXINE HCL 75 MG TABLET PO SCH (09:59)
[2018-10-29] MEDS: LIDOCAINE 5% TOPICAL PATCH TP SCH (10:00)
[2018-10-29] MEDS: NICOTINE 21 MG/24 HOURS TOPICAL PATCH TD SCH (10:01)
[2018-10-29] MEDS: MINERAL OIL/PETROLAT/WATER TOPICAL CREAM 113 GM JAR TP SCH ×2 (10:01→21:09)
[2018-10-29] MEDS: HYDROCORTISONE 1% TOPICAL CREAM 30 GM TUBE TP SCH ×2 (10:01→21:09)
[2018-10-29] MEDS: THIAMINE HCL 100 MG TABLET (FP) PO SCH (21:08)
[2018-10-29] MEDS: LIDOCAINE PATCH REMOVAL MC SCH (21:09)
[2018-10-30] MEDS: ACETAMINOPHEN 325 MG TABLET (FP) PO PRN ×3 (03:12→19:06)
[2018-10-30] MEDS ORDERED: METHADONE HCL 10 MG TABLET ONE (06:33)
[2018-10-30] MEDS ORDERED: METHADONE HCL 40 MG DISPERSABLE TABLET ONE (06:33)
[2018-10-30] MEDS: METHADONE 120 MG, METHADONE 10 MG PO SCH (06:51)
[2018-10-30] MEDS: CYCLOBENZAPRINE HCL 10 MG TABLET (FP) PO SCH ×3 (06:52→21:02)
[2018-10-30] MEDS: GABAPENTIN 300 MG CAPSULE (FP) PO SCH ×3 (06:52→21:02)
[2018-10-30] MEDS: P-EPHED 60MG/TRIPROLIDI 2.5MG TABLET PO PRN (07:24)
[2018-10-30] MEDS ORDERED: AZITHROMYCIN 500 MG TABLET PO SCH (07:28)
[2018-10-30] MEDS ORDERED: ALBUTEROL SO4 2.5/IPRATROPIUM 0.5 INH SOL 3 ML VIAL.NEB. NEB ONE (07:28)
--- NOTE | 2018-10-30 07:28 | PN ---
[facility] Progress Note (SOAP) Subjective: SEEN FOR C/O OF FEVER X2 DAYS. CLIENT STATES SHE HAS HAD FEVER X 2 DAYS WITH C/ O HEADACHE AND PRESSURE TO HERE HEAD. +SOB, +FEVER, +CHILLS. DENIES C.P., N/V/D , COUGH Objective: 10/30/18 07:35 Vital Signs - 24 hr 10/29/18 10/29/18 10/30/18 09:06 21:34 07:13 Temperature 99.5 F 98.7 F 101.4 F H Pulse Rate 85 88 99 H Respiratory 19 20 18 Rate Blood Pressure 120/76 110/77 120/82 10/30/18 07:15 Temperature 100.2 F H Pulse Rate 99 H Respiratory 18 Rate Blood Pressure 120/82 Laboratory Tests 10/16/18 10/17/18 10/17/18 15:29 05:45 05:45 WBC 4.3 RBC 4.19 Hgb 12.3 Hct 37.7 MCV 90.1 MCH 29.4 MCHC 32.6 RDW 15.0 Plt Count 165 MPV 10.3 Sodium 140 Potassium 4.0 Chloride 105 Carbon Dioxide 32 Anion Gap 4 L BUN 9 Creatinine 0.8 Creat Clearance w eGFR > 60 Random Glucose 74 Calcium 8.9 Total Bilirubin 0.3 AST 25 ALT 29 Alkaline Phosphatase 84 Total Protein 7.5 Albumin 3.7 Urine Color Straw Urine Appearance Clear Urine pH 7.0 Ur Specific [place] 1.009 L Urine Protein Negative Urine Glucose (UA) Negative Urine Ketones Negative Urine Blood Negative Urine Nitrite Negative Urine Bilirubin Negative Urine Urobilinogen Negative Ur Leukocyte Esterase Trace Urine WBC (Auto) <1 Urine RBC (Auto) <1 Ur Epithelial Cells Rare [place] RPR Titer 10/17/18 10/17/18 10/20/18 05:45 05:45 09:55 WBC RBC Hgb Hct MCV MCH MCHC RDW Plt Count MPV Sodium Potassium Chloride Carbon Dioxide Anion Gap BUN Creatinine Creat Clearance w eGFR Random Glucose Calcium Total Bilirubin AST ALT Alkaline Phosphatase Total Protein Albumin Urine Color Urine Appearance Urine pH Ur Specific [place] Urine Protein Urine Glucose (UA) Urine Ketones Urine Blood Urine Nitrite Urine Bilirubin Urine Urobilinogen Ur Leukocyte Esterase Urine WBC (Auto) Urine RBC (Auto) Ur Epithelial Cells [place] 1.3 H 0.6 RPR Titer Nonreactive REPEATED TEMP 100.2 A/O X3 NAD HEENT- NCAT +TENDERNESS TO FRONTAL SINUSES AND ETHMOID SINUSES CV RR-TACHY- O2 SAT 90% RA LUNGS- MILD INSPIRATORY WHEEZING 10/30/18 07:43 10/30/18 07:46 Assessment: 10/30/18 07:39 SINUSITIS, ASTHMA, URI Plan: TYLENOL NOW ACTIFED ORDERED DUONEB X 1 ZITHROMAX 500 MG DAILY X 3 DAYS- CLIENT IS SCHEDULE FOR DC TODAY. SHE IS IN NAD. WILL GIVE 1 DOSE NOW. 2 REMAINING DOSE SENT TO PT PREFERRED [facility]. D/W CLIENT TO F/U WITH PCP AFTER DC. INFORMED HER TO SEEKING URGENT CARE OR ER SERVICES FOR WORSENING/ UNRELIEVED SYMPTOMS TO INCLUDE SOB, C.P. FEVER. CLIENT VERBALIZED UNDERSTANDING
[2018-10-30] MEDS: PRENATAL VITAMINS W/ FOLIC ACID TABLET (FP) PO SCH (09:27)
[2018-10-30] MEDS: LIDOCAINE 5% TOPICAL PATCH TP SCH (09:28)
[2018-10-30] MEDS: NICOTINE 21 MG/24 HOURS TOPICAL PATCH TD SCH (09:28)
[2018-10-30] MEDS: ARIPiprazole 10 MG TABLET PO SCH (09:28)
[2018-10-30] MEDS: PANTOPRAZOLE 40 MG TABLET (FP) PO SCH (09:28)
[2018-10-30] MEDS: AZITHROMYCIN 250 MG TABLET PO SCH (09:29)
[2018-10-30] MEDS: VENLAFAXINE HCL 75 MG TABLET PO SCH (09:31)
[2018-10-30] MEDS: MINERAL OIL/PETROLAT/WATER TOPICAL CREAM 113 GM JAR TP SCH ×2 (09:31→21:03)
[2018-10-30] MEDS: HYDROCORTISONE 1% TOPICAL CREAM 30 GM TUBE TP SCH ×2 (09:31→21:03)
[2018-10-30] MEDS: LITHIUM CARBONATE 150 MG CAPSULE PO SCH ×2 (10:10→21:02)
[2018-10-30] MEDS: IBUPROFEN 400 MG TABLET (FP) PO PRN (10:11)
--- NOTE | 2018-10-30 12:19 | PN ---
[facility] Progress Note Note: PATIENT SEEN DUE TO ELEVATED TEMPERATURE THIS MORNING. PATIENT ORDERED AZITHROMYCIN AND GIVEN MOTRIN FOR TEMPERATURE. PATIENT EVALUATED AT BEDSIDE AND DENIES SORE THROAT, COUGH, CHEST PAIN AND SOB. + C/O HEADACHE. Laboratory Tests 10/16/18 10/17/18 10/17/18 15:29 05:45 05:45 WBC 4.3 RBC 4.19 Hgb 12.3 Hct 37.7 MCV 90.1 MCH 29.4 MCHC 32.6 RDW 15.0 Plt Count 165 MPV 10.3 Sodium 140 Potassium 4.0 Chloride 105 Carbon Dioxide 32 Anion Gap 4 L BUN 9 Creatinine 0.8 Creat Clearance w eGFR > 60 Random Glucose 74 Calcium 8.9 Total Bilirubin 0.3 AST 25 ALT 29 Alkaline Phosphatase 84 Total Protein 7.5 Albumin 3.7 Urine Color Straw Urine Appearance Clear Urine pH 7.0 Ur Specific [place] 1.009 L Urine Protein Negative Urine Glucose (UA) Negative Urine Ketones Negative Urine Blood Negative Urine Nitrite Negative Urine Bilirubin Negative Urine Urobilinogen Negative Ur Leukocyte Esterase Trace Urine WBC (Auto) <1 Urine RBC (Auto) <1 Ur Epithelial Cells Rare [place] RPR Titer 10/17/18 10/17/18 10/20/18 05:45 05:45 09:55 WBC RBC Hgb Hct MCV MCH MCHC RDW Plt Count MPV Sodium Potassium Chloride Carbon Dioxide Anion Gap BUN Creatinine Creat Clearance w eGFR Random Glucose Calcium Total Bilirubin AST ALT Alkaline Phosphatase Total Protein Albumin Urine Color Urine Appearance Urine pH Ur Specific [place] Urine Protein Urine Glucose (UA) Urine Ketones Urine Blood Urine Nitrite Urine Bilirubin Urine Urobilinogen Ur Leukocyte Esterase Urine WBC (Auto) Urine RBC (Auto) Ur Epithelial Cells [place] 1.3 H 0.6 RPR Titer Nonreactive Vital Signs Temperature 101.1 F H 10/30/18 10:03 Pulse Rate 99 H 10/30/18 07:15 Respiratory Rate 18 10/30/18 07:15 Blood Pressure 120/82 10/30/18 07:15 O2 Sat by Pulse Oximetry (%) PE: ALERT AND ORIENTED X 3 SKIN WARM AND DRY +PERRLA, EOMS INTACT BL CAR S1S2 RESP FAINT WHEEZE, LEFT UPPER LOBE, NO RALES, RHONCHI EXT FULL ROM AMB AD JOSE A/P: FEVER SINUSITIS WILL CONTINUE ABX PREVIOUSLY ORDERED ENCOURAGE ORAL FLUIDS HOLD D/C TODAY OBSERVE FOR 24 HRS CONTINUE MOTRIN PRN FOR FEVER CONTINUE TO MONITOR
[2018-10-30] MEDS ORDERED: PT OWN MED DRAWER 7, Y5N ONE (16:15)
[2018-10-30] MEDS: THIAMINE HCL 100 MG TABLET (FP) PO SCH (21:01)
[2018-10-30] MEDS: hydrOXYzine PAMOATE 50 MG CAPSULE (FP) PO PRN (21:02)
[2018-10-30] MEDS: LIDOCAINE PATCH REMOVAL MC SCH (21:03)
[2018-10-31] MEDS ORDERED: METHADONE HCL 10 MG TABLET ONE (05:47)
[2018-10-31] MEDS ORDERED: METHADONE HCL 40 MG DISPERSABLE TABLET ONE (05:49)
[2018-10-31] MEDS: GABAPENTIN 300 MG CAPSULE (FP) PO SCH (06:03)
[2018-10-31] MEDS: METHADONE 120 MG, METHADONE 10 MG PO SCH (06:03)
[2018-10-31] MEDS: CYCLOBENZAPRINE HCL 10 MG TABLET (FP) PO SCH (06:03)
[2018-10-31 06:45] VITALS: BP 105/73; PULSE 76; TEMP 98.1
[2018-10-31] MEDS ORDERED: PT OWN MED DRAWER 7, Y5N ONE (08:40)
[2018-10-31] MEDS: ARIPiprazole 10 MG TABLET PO SCH (09:10)
[2018-10-31] MEDS: LITHIUM CARBONATE 150 MG CAPSULE PO SCH (09:10)
[2018-10-31] MEDS: VENLAFAXINE HCL 75 MG TABLET PO SCH (09:10)
[2018-10-31] MEDS: HYDROCORTISONE 1% TOPICAL CREAM 30 GM TUBE TP SCH (09:11)
[2018-10-31] MEDS: PANTOPRAZOLE 40 MG TABLET (FP) PO SCH (09:11)
[2018-10-31] MEDS: LIDOCAINE 5% TOPICAL PATCH TP SCH (09:11)
[2018-10-31] MEDS: MINERAL OIL/PETROLAT/WATER TOPICAL CREAM 113 GM JAR TP SCH (09:11)
[2018-10-31] MEDS: PRENATAL VITAMINS W/ FOLIC ACID TABLET (FP) PO SCH (09:12)
[2018-10-31] MEDS: NICOTINE 21 MG/24 HOURS TOPICAL PATCH TD SCH (09:12)
[2018-10-31] MEDS: AZITHROMYCIN 250 MG TABLET PO SCH (09:12)
--- NOTE | 2018-10-31 09:57 | PN ---
[facility] Progress Note Note: MEDICAL DISCHARGE NOTES: PT WAS SEEN THIS MORNING AND SHE REPORTS SHE IS READY TO BE DISCHARGED. HOWEVER PT C/O "DRY THROAT AND THIRSTY". PT SHOWED A THICK BLOOD TINGED MUCUS SHE COUGHED UP IN THE GARBAGE. SHE REPORTS THAT HAPPENED ONLY ONE TIME. PT WAS SPOKEN TO BY THIS MAXILLOFACIAL PROSTHODONTIST AND COUNSELLING NATIONAL INVESTIGATIVE PRODUCER, MS PETERSON SUGGESTING SHE WILL BE TAKEN TO [facility] ER FOR EVALUATION DUE TO PREVIOUS DAY'S ELEVATED TEMPERATURE. PT DECLINED AND STATES HER PRIMARY CARE DOCTOR IS ACR[place] FROM HER RESIDENCE AND SHE WILL FOLLOW UP IF SHE NEEDS TO DO SO "BECAUSE IT HAPPENED ONLY ONE TIME". PT HAS BEEN AFEBRILE NOW X 24 HRS. NAD. PT SIGNED REFUSAL FOR FURTHER EVALUATION BEFORE DISCHARGING. PT REPORTS SHE HAS A PMD, DR. WADSWORTH AT [facility] ON [address] [place] WHO SHE WANTS TO SEE AFTER SHE LEAVES HERE TODAY. CALLED AND SPOKE TO [facility] STAFF FOR MEDICAL UPDATE ON PATIENT. Vital Signs - 24 hr 10/31/18 10/31/18 03:30 06:43 Temperature 98.1 F Pulse Rate 76 Respiratory 19 18 Rate Blood Pressure 105/73 CARDIAC:S1 S2, RRR LUNGS:CTA PLAN:PT TO FOLLOW UP AT [facility] RECOMMENDED AND SEE DR. WADSWORTH TODAY. INSTRUCTED INCREASE PO FLUIDS.
== END 2018-10-31 10:05 | disposition home or self-care (01) | DRG 772 ==
LOC: YASAS 09:50 → Y3E 14:35
PROVIDERS: ADMIT Psychiatry & Neurology Psychiatry; ATTEND Psychiatry & Neurology Psychiatry
PROC: HZ42ZZZ Group Counseling for Substance Abuse Treatment, Cognitive-Behavioral (ICD-10-PCS; principal; 2018-10-16)
DX: F14.20 Cocaine dependence, uncomplicated (principal); F11.20 Opioid dependence, uncomplicated; F17.210 Nicotine dependence, cigarettes, uncomplicated; F31.81 Bipolar II disorder; R50.9 Fever, unspecified; J01.90 Acute sinusitis, unspecified; J06.9 Acute upper respiratory infection, unspecified; J45.909 Unspecified asthma, uncomplicated; R76.11 Nonspecific reaction to tuberculin skin test without active tuberculosis; M54.40 Lumbago with sciatica, unspecified side; K21.9 Gastro-esophageal reflux disease without esophagitis; B18.2 Chronic viral hepatitis C; E66.9 Obesity, unspecified; Z68.37 Body mass index [BMI] 37.0-37.9, adult; R26.2 Difficulty in walking, not elsewhere classified; Z99.89 Dependence on other enabling machines and devices; Z86.69 Personal history of other diseases of the nervous system and sense organs
CPT/HCPCS: 36415; 71046-TC-FY; 80053; 80178; 81003; 81015; 85027; 86593; 93005; 93010; 94640